=== PATIENT | female | born 1980 | race Caucasian/White ===

== ENCOUNTER 2019-01-09 22:46 | Emergency (ER) | payer MEDICAID ==
--- NOTE | 2019-01-09 23:12 | Emergency Department Record ---
History of Present Illness - General Chief Complaint: Abdominal Pain Stated Complaint: ABDOMINAL PAIN Time Seen by Provider: 01/09/19 23:01 Source: Patient Mode of Arrival: Ambulatory Limitations: No limitations - History of Present Illness Initial Comments: 38 yo female presents to ED for evaluation of fever and abdominal pain symptoms that have been present for the past 2 days. Patient reports mild flank pain and urinary "burning", denies previous abdominal surgery or health problems at her baseline. Patient reports recent strep pharyngitis treated with antibiotics currently. Patient denies cough or difficulty in breathing. MD Complaint: Abdominal pain Onset/Timin -: Days(s) Location: R Flank Radiation: None Migration to: No migration Severity: Moderate Quality: Aching Consistency: Constant Improves With: Nothing Worsens With: Nothing Associated Symptoms: Fever - Related Data Previous Rx's Medication Instructions Recorded Cephalexin [Keflex] 500 mg PO TID #30 cap 01/10/19 Allergies Allergy/AdvReac Type Severity Reaction Status Date / Time No Known Drug Allergies Allergy Verified 01/09/19 23:10 Review of Systems Constitutional: Reports: Fever. Denies: Chills, Malaise, Night sweats Eyes: Denies: Eye discharge, Eye pain ENT: Denies: Congestion, Ear pain, Epistaxis Respiratory: Denies: Cough, Dyspnea Cardiovascular: Denies: Chest pain, Dyspnea on exertion Endocrine: Denies: Fatigue, Heat or cold intolerance Gastrointestinal: Reports: Abdominal pain. Denies: Constipation, Nausea, Vomiting Genitourinary: Reports: Dysuria. Denies: Hematuria, Incontinence Musculoskeletal: Reports: Back pain. Denies: Arthralgia Skin: Denies: Bruising, Change in color Neurological: Denies: Abnormal gait, Confusion, Headache, Seizure Psychiatric: Denies: Anxiety Hematological/Lymphatic: Denies: Anemia, Blood Clots Physical Exam - General General Appearance: Alert, Oriented x3, Cooperative, Moderate distress Limitations: No limitations - Head Head exam: Atraumatic, Normocephalic, Normal inspection Head exam detail: negative: Abrasion, Contusion, Galvin's sign, General tenderness, Hematoma, Laceration - Eye Eye exam: Normal appearance. negative: Conjunctival injection, Periorbital swelling, Periorbital tenderness, Scleral icterus - ENT Ear exam: negative: Auricular hematoma, Auricular trauma Nasal Exam: negative: Active bleeding, Discharge, Dried blood, Foreign body Mouth exam: negative: Drooling, Laceration, Muffled voice, Tongue elevation - Neck Neck exam: Normal inspection. negative: Meningismus, Tenderness - Respiratory Respiratory exam: Normal lung sounds bilaterally. negative: Rales, Respiratory distress, Rhonchi, Stridor - Cardiovascular Cardiovascular Exam: Regular rate, Normal rhythm, Normal heart sounds - GI/Abdominal GI/Abdominal exam: Soft, Tenderness (Mild, diffuse TTP, no rebound or guarding symptoms are present.). negative: Rebound, Rigid - Rectal Rectal exam: Deferred - exam: Deferred - Extremities Extremities exam: Normal inspection. negative: Pedal edema, Tenderness - Back Back exam: Denies: CVA tenderness (R), CVA tenderness (L) - Neurological Neurological exam: Alert, Normal gait, Oriented X3 - Psychiatric Psychiatric exam: Normal affect, Normal mood - Skin Skin exam: Normal color. negative: Abrasion Type of lesion: negative: abrasion Course - Reevaluation(s) Reevaluation #1: 01/09/19 23:48 Laboratory studies were reviewed and appear grossly unremarkable for an acute process except for the following: AST 78 FDC 96 Alk phos 268 UA: 21-35 WBCs 2+ Bacteria Rocephin ordered to infuse for probable pyelonephritis Patient is currently in CT for imaging. Reevaluation #2: 01/10/19 00:38 CT Abdomen and Pelvis: Findings c/w right sided pyelonephritis Patient was updated on all results, has received initial does of Rocephin. Patient reports that her symptoms are significantly improved. Patient appears stable for discharge with outpatient treatment of pyelonephritis. Medical Decision Making - Lab Data Result diagrams: 01/09/19 23:20 01/09/19 23:20 Disposition Disposition: Discharge Clinical Impression: Pyelonephritis Disposition: Home, Self-Care Condition: (2) Stable Instructions: Kidney Infection (ED) Additional Instructions: Return to ED if your symptoms worsen or if you have any concerns. Keflex as directed. Follow-up with your family doctor in 3-5 days as directed. Prescriptions: Cephalexin [Keflex] 500 mg PO TID #30 cap Forms: Patient Portal Access Time of Disposition: 00:40 Quality - Quality Measures Quality Measures: N/A - Blood Pressure Screening Does Patient Have Any of the Following: No Blood Pressure Classification: Hypertensive Reading Systolic Measurement: 130 Diastolic Measurement: 95 Screening for High Blood Pressure: < First Hypertensive BP, F/U Documented > [G8950] First Hypertensive Follow-up Interventions: Referral to alternative/primary care provider.
[2019-01-09] MEDS ORDERED: ACETAMINOPHEN 1,000 MG/100 ML BTL IVPB ONE (23:13)
[2019-01-09] MEDS ORDERED: KETOROLAC 30 MG/ML VIAL IVP ONE (23:13)
[2019-01-09] MEDS ORDERED: 0.9 % SODIUM CHLORIDE 1000ML 1,000 ML IV SCH (23:15)
[2019-01-09 23:34] LABS: URINE APPEARANCE SL CLOUDY; URINE BILIRUBIN NEGATIVE (NEGATIVE); URINE BLOOD MODERATE (NEGATIVE); URINE COLOR YELLOW; URINE GLUCOSE (UA) NEGATIVE (NEGATIVE); URINE KETONE NEGATIVE (NEGATIVE); URINE LEUKOCYTE ESTERASE MODERATE (NEGATIVE); URINE NITRITE POSITIVE (NEGATIVE); URINE PROTEIN TRACE (NEGATIVE); URINE UROBILINOGEN 0.2 E.U./dL (0.20 - 1.00)
[2019-01-09 23:34] LABS: ABSOLUTE NEUTROPHIL COUNT 6.36; BASO % 0.2 % (0-6); EOS % 0.7 % (0-6); GRAN % 72.2 % (47-80); HEMATOCRIT 38.7 % (35.0-47.0); HEMOGLOBIN 12.7 gm/dl (11.6-16.0); LYMPH % 15.9 % (16-45); MEAN CELL VOLUME 94.2 fl (81-97); MEAN CORPUSCULAR HEMOGLOBIN 30.9 pg (27-33); MEAN CORPUSCULAR HGB CONC 32.8 g/dl (32-36); MEAN PLATELET VOLUME 10.4 fl (7.4-10.4); PLATELET COUNT 239 K/uL (130-400); RED BLOOD COUNT 4.11 M/uL (3.80-5.40); RED CELL DISTRIBUTION WIDTH 14.3 % (11.5-14.5); WHITE BLOOD COUNT W/O DIFF 8.8 K/uL (4.2-12.2)
[2019-01-09 23:44] LABS: URINE BACTERIA 2+; URINE EPITHELIAL CELLS 0 - 2 (FEW); URINE WBC 21 - 35 (0-2/hpf)
[2019-01-09 23:45] LABS: BLOOD UREA NITROGEN 9 mg/dL (6-20); CREATININE 0.6 mg/dL (0.5-0.9); EST GLOMERULAR FILTRATION RATE > 60 mL/min
[2019-01-09 23:46] LABS: LIPASE 24 U/L (13-60); TOTAL PROTEIN 6.5 g/dL (6.6-8.7)
[2019-01-09 23:48] LABS: GLUCOSE,RANDOM 104 mg/dL (74-109)
[2019-01-09] MEDS ORDERED: CEFTRIAXONE 1GM/50ML BAG 1 GM/50 ML BAG IVPB ONE (23:48)
[2019-01-09 23:50] LABS: ALB/GLOB RATIO 1.6 (1.1-1.8); ALT/SGPT 96 U/L (<33); AST/SGOT 78 U/L (10.0-35.0)
[2019-01-09 23:51] LABS: ALKALINE PHOSPHATASE 268 U/L (35-104)
--- NOTE | 2019-01-11 19:57 | CT SCAN REPORT ---
EXAM: CT SCAN ABDOMEN/PELVIS W CONTRAST HISTORY: EPIGASTRIC ABDOMINAL PAIN WITH NAUSEA. WORSENS AFTER EATING FOR LAST 4-8 WEEKS. TECHNIQUE: Contrast-enhanced helical CT examination of the abdomen and pelvis is performed including delayed images through the kidneys with 95 mL of Omnipaque-300 utilized. COMPARISON: None. FINDINGS: Lack of oral contrast utilization limits evaluation of bowel. The wall of the distal esophagus appears borderline to mildly prominent, likely due to incomplete distention, though a mucosal abnormality is not entirely excluded. There is mild dependent atelectasis in each lung base. No pleural or pericardial effusion. The liver, spleen, pancreas, and adrenal glands are normal in appearance. The gallbladder is unremarkable and the biliary tree is normal in caliber. There is mild relatively diffuse perinephric fat stranding on the right and minimal perinephric fat stranding on the left. There are associated subtle areas of hypo-enhancement in each kidney. These are relatively small and wedge-shaped extending to the periphery. These are nonspecific but likely the result of multifocal bacterial nephritis. The possibility of ischemia or a neoplastic process causing this appearance is considered remote. The kidneys are otherwise normal in appearance. No intraabdominal nor retroperitoneal lymphadenopathy. The vasculature is normal in appearance. No pelvic mass or lymphadenopathy. There is trace free fluid in the cul-de-sac. This is nonspecific but likely physiologic. The ovaries are not enlarged. Tiny follicles are scattered in each ovary. No gross bowel dilatation nor bowel wall thickening. The appendix is visualized and normal in caliber. The wall of the urinary bladder appears mildly prominent in thickness. While this may relate to incomplete distention, this can also be seen with cystitis. There is a tiny fat-filled umbilical hernia. The abdominal wall is otherwise intact. No lytic or blastic bone lesion. IMPRESSION: 1. ABNORMAL APPEARANCE OF THE KIDNEYS WITH ASSOCIATED MILD PERINEPHRIC FAT STRANDING SUSPICIOUS FOR ACUTE MULTIFOCAL BACTERIAL NEPHRITIS. CORRELATION WITH URINALYSIS IS RECOMMENDED. APPARENT WALL THICKENING OF THE URINARY BLADDER ALSO IDENTIFIED. WHILE THIS MAY RELATE TO INCOMPLETE DISTENTION, CYSTITIS IS ALSO CONSIDERED. 2. TRACE FREE FLUID IN THE PELVIS IS NONSPECIFIC BUT LIKELY PHYSIOLOGIC. 3. APPARENT BORDERLINE TO MILD WALL THICKENING OF THE DISTAL ESOPHAGUS LIKELY RELATES TO INCOMPLETE DISTENTION, THOUGH A MUCOSAL ABNORMALITY CANNOT BE ENTIRELY EXCLUDED. JOB NUMBER: [id number] [facility]
== END 2019-01-10 00:50 | disposition home or self-care (01) ==
LOC: ER 22:46
DX: N10 Acute pyelonephritis (principal); R11.0 Nausea; R10.13 Epigastric pain
CPT/HCPCS: 74177; 80053; 81001; 83690; 85025; 96361; 96365; 96375; 99284; J0696; J1885; J7030